=== PATIENT | female | born 1975 | race Hispanic/Latino ===

== ENCOUNTER 2018-04-03 12:28 | Emergency (ER) | payer MEDICAID ==
[2018-04-03 13:12] LABS: Band 4 % (5-11); Eosinophils 1 % (0-10); Lymphocytes 22 % (21-51); MDiff Complete? YES; Mean Corpuscular HGB CONC 33.2 g/dL (32.0-36.0); Mean Corpuscular Hemoglobin 30.4 pg (27.0-31.0); Mean Corpuscular Volume 91.7 fL (78.0-98.0); Mean Platelet Volume 6.2 fL (7.4-10.4); Monocytes 8 % (0-10); Neutrophil 63 % (42-75); PLT Morphology Comment Appears Adequate; Platelet Count 251 thou/uL (130-400); RBC Distribution Width 13.2 % (11.5-14.5); Reactive Lymphocytes 2 % (0-10); Red Blood Cell (RBC) Count 4.28 mill/uL (4.20-5.40)
[2018-04-03 13:19] LABS: Bilirubin Negative (Negative); Blood, Urine Trace (Negative); Glucose, Urine (Dipstick) Negative (Negative); Leukocyte Large (Negative); Nitrite Negative (Negative); Protein, Urine (Dipstick) Negative (Neg-Trace); Urobilinogen 0.2 mg/dL (0.2-1.0)
[2018-04-03 13:20] LABS: Clarity Slightly Cloudy (Clear)
[2018-04-03 13:24] LABS: Bacteria/HPF 2+ HPF (None Seen); RBC/HPF 0-3 HPF (0-3); Squamous Epithelial 0-3 HPF (0-3)
[2018-04-03] MEDS ORDERED: Azithromycin 250 MG TAB ONE (14:29)
[2018-04-03] MEDS ORDERED: cefTRIAXone\\ROCEPHIN 1 GM VIAL ONE (14:30)
[2018-04-03] MEDS ORDERED: Lidocaine 1% MPF 2 ML VIAL ONE (14:30)
[2018-04-03] MEDS ORDERED: Lidocaine 1% PF 5 ML VIAL ONE (14:31)
--- NOTE | 2018-04-03 14:56 | ULT ---
PELVIC ULTRASOUND: COMPARISON: 04/01/18. HISTORY: Dysuria with low abdominal pain and pressure. TECHNIQUE: Transabdominal and endovaginal imaging of the pelvis is performed. Ovaries are interrogated with gra y scale, color flow, Doppler imaging, and spectral waveform analysis. FINDINGS: Multiple nabothian cysts are noted. Uterus measures 9.5 x 5.6 x 7.1 cm. Within the endometrium, the re is a gestational sac. Within the gestational sac, there is a pole with a crown-rump length of 0.48 cm corresponding to gestational age of 6 weeks 1 day. There are heart tones with a rat e of 108 b.p.m. Small subchorionic hemorrhage is suspected. The right ovary measures 3.4 x 2.1 x 2.8 cm. The left ovary measures 2.7 x 2.5 x 1.7 cm. There is a trace amount of free fluid in the cul-de-sac. OVARIAN DOPPLER: There is vascular flow to both ovaries. IMPRESSION: 1. Single intrauterine gestation with heart tones. Gestation by crown-rump length is 6 weeks 1 day. 2. Small subchorionic hemorrhage is noted. POS: [facility]
== END 2018-04-03 14:52 | disposition home or self-care (01) ==
LOC: SCSER 12:28
DX: O09.521 Supervision of elderly multigravida, first trimester (principal); O23.41 Unspecified infection of urinary tract in pregnancy, first trimester; Z3A.08 8 weeks gestation of pregnancy
CPT/HCPCS: 76856; 81003; 81015; 84702; 85025; 96372; J0696; J2001

== ENCOUNTER 2018-05-01 17:20 | Emergency (ER) | payer MEDICAID, OTHER ==
[2018-05-01 18:16] LABS: #Basophils 0.1 thou/uL (0.0-0.2); #Eosinphils 0.1 thou/uL (0.0-0.7); #Monocytes 0.6 thou/uL (0.11-0.59); %Basophils 0.9 % (0.0-1.0); %Eosinophils 1.6 % (0.0-10.0); %Lymphocytes 22.9 % (21.0-51.0); %Monocytes 6.7 % (0.0-10.0); Mean Corpuscular HGB CONC 36.7 g/dL (32.0-36.0); Mean Corpuscular Hemoglobin 31.1 pg (27.0-31.0); Mean Corpuscular Volume 84.8 fL (78.0-98.0); Mean Platelet Volume 5.4 fL (7.4-10.4); Platelet Count 274 thou/uL (130-400); RBC Distribution Width 11.3 % (11.5-14.5); Red Blood Cell (RBC) Count 3.86 mill/uL (4.20-5.40); White Blood Cell (WBC) Count 8.8 thou/uL (4.8-10.8)
[2018-05-01 18:27] LABS: Anion Gap 8 mmol/L (10-20); BUN (Urea Nitrogen) 9 mg/dL (7.0-18.7); Calc. Creatinine Clearance 0 mL/min (70-130); Calcium 8.8 mg/dL (7.8-10.44); Carbon Dioxide 24 mmol/L (22-29); Chloride 109 mmol/L (98-107); Estimated GFR-MDRD Greater than 90; Glucose 89 mg/dL (70-105); Potassium 3.4 mmol/L (3.5-5.1); Sodium 138 mmol/L (136-145)
[2018-05-01 20:15] LABS: Bilirubin Negative (Negative); Blood, Urine Moderate (Negative); Clarity Slightly Cloudy (Clear); Glucose, Urine (Dipstick) Negative (Negative); Leukocyte Negative (Negative); Nitrite Negative (Negative); Protein, Urine (Dipstick) Negative (Neg-Trace); Specific Gravity, Urine 1.015 (1.005-1.030); Urobilinogen 0.2 mg/dL (0.2-1.0); pH, Urine 8.5 (5.0-9.0)
[2018-05-01 20:17] LABS: Bacteria/HPF 1+ HPF (None Seen); RBC/HPF 0-3 HPF (0-3); Squamous Epithelial 0-3 HPF (0-3); WBC/HPF 0-3 HPF (0-3)
--- NOTE | 2018-05-01 20:38 | ULT ---
ULTRASOUND PELVIS DOPPLER DUPLEX: 05/01/2018 HISTORY: A 42-year-old female with early second trimester (12 weeks' gestation) vaginal bleeding. TECHNIQUE: A transabdominal transducer was used to evaluate intrapelvic contents with marcos-scale, color-flow, an d spectral analysis. A transvaginal ultrasound was not performed. FINDINGS: The intrauterine gestational sac demonstrated on 04/03/2018 is significantly larger now, measuring ap proximately 2.5 x 2 x 3 cm. No pole is visualized. There is an ill-defined area with echogenicity similar to that of myometrium and, therefore, difficul t to distinguish for myometrium, indenting the posterior aspect of the gestational sac. This region has a high degree of blood flow demonstrated by Doppler. Blood flow is demonstrated in both ovaries by Doppler. The bilateral ovaries are normal in size. No corpus luteal cyst. IMPRESSION: 1. No intrauterine gestation. 2. The gestational sac is significantly larger than it was on 04/03/2018. 3. Indenting to the posterior surface of the gestational sac, there is a very hyperemic region, whic h is difficult to separate from the rest of the myometrium. This could represents retain products of conception. POS: [facility]
== END 2018-05-01 20:36 | disposition home or self-care (01) ==
LOC: SCSER 17:20
DX: O03.4 Incomplete spontaneous abortion without complication (principal)
CPT/HCPCS: 36415; 76805; 76856; 80048; 81003; 81015; 84702; 85025; 86850; 86900; 86901; 87086; 93976

== ENCOUNTER 2018-05-02 19:00 | Emergency (ER) | payer MEDICAID, OTHER ==
[2018-05-02 20:04] LABS: Band 8 % (5-11); Eosinophils 2 % (0-10); Hemoglobin 12.8 g/dL (12.0-16.0); Lymphocytes 20 % (21-51); MDiff Complete? YES; Mean Corpuscular HGB CONC 35.7 g/dL (32.0-36.0); Mean Corpuscular Hemoglobin 29.9 pg (27.0-31.0); Mean Corpuscular Volume 83.7 fL (78.0-98.0); Mean Platelet Volume 5.9 fL (7.4-10.4); Monocytes 4 % (0-10); Neutrophil 66 % (42-75); PLT Morphology Comment Appears Adequate; Platelet Count 279 thou/uL (130-400); RBC Distribution Width 10.9 % (11.5-14.5); White Blood Cell (WBC) Count 9.3 thou/uL (4.8-10.8)
== END 2018-05-02 22:08 | disposition home or self-care (01) ==
LOC: SCSER 19:00
DX: O03.4 Incomplete spontaneous abortion without complication (principal)
CPT/HCPCS: 84702; 85025; 96374

== ENCOUNTER 2018-07-26 11:31 | Emergency (ER) | payer OTHER ==
[2018-07-26] MEDS ORDERED: Ibuprofen 800 MG TAB ONE (11:51)
[2018-07-26] MEDS ORDERED: Acetaminophen 500 MG TAB ONE (11:51)
== END 2018-07-26 12:03 | disposition home or self-care (01) ==
LOC: ERS 11:31
DX: H66.91 Otitis media, unspecified, right ear (principal)
CPT/HCPCS: 99284